=== PATIENT | female | born 1990 ===

== ENCOUNTER 2018-10-21 20:37 | Emergency (ER) | payer OTHER ==
[2018-10-21 21:03] VITALS: BP 102/70
--- NOTE | 2018-10-21 21:04 | UC ---
Knee Pain HPI - HPI Summary HPI Summary: 28 yo female presents with LEFT knee and LEFT wrist injury. She tells me that she was hiking earlier today and fell. She twisted her left knee and landed on her left wrist. She finished her hike. Upon getting home she iced the areas and pain and ROM improved, but she is flying back to [place] in a few days and is concerned about a fracture. She is right handed. Denies numbness or tingling. - History of Current Complaint Chief Complaint: UCLowerExtremity Stated Complaint: L KNEE INJURY Time Seen by Provider: 10/21/18 21:04 Hx Obtained From: Patient Hx Last Menstrual Period: today Onset/Duration: Sudden Onset Severity Initially: Moderate Severity Currently: Moderate Pain Intensity: 5 Pain Scale Used: 0-10 Numeric - Allergies/Home Medications Allergies/Adverse Reactions: Allergies Allergy/AdvReac Type Severity Reaction Status Date / Time No Known Allergies Allergy Verified 10/21/18 20:58 Home Medications: Home Medications Ibuprofen 400 mg PO Q8HR PRN 10/21/18 [History Confirmed 10/21/18] PMH/Surg Hx/FS Hx/Imm Hx - Additional Past Medical History Additional PMH: None - Surgical History Surgical History: Yes Surgery Procedure, Year, and Place: L ear surgery at 9 y/o and 11 y/o - Family History Known Family History: Positive: None - Social History Occupation: Employed Part-time Lives: With Family Alcohol Use: Rare Substance Use Type: None Smoking Status (MU): Never Smoked Tobacco Review of Systems All Other Systems Reviewed And Are Negative: Yes Constitutional: Positive: Negative Skin: Positive: Negative Respiratory: Positive: Negative Cardiovascular: Positive: Negative Neurovascular: Positive: Negative Musculoskeletal: Positive: Other: - Left knee and wrist pain Neurological: Positive: Negative Psychological: Positive: Negative Physical Exam - Summary Physical Exam Summary: GENERAL: NAD. WDWN. No pain distress. SKIN: No rashes, sores, lesions, or open wounds. CHEST: No accessory muscle use. Breathing comfortably and in no distress. CV: . Pulses intact popliteal, PT, and DP. Cap refill <2seconds MSK: LEFT KNEE: FROM. Strength 5/5. No edema or obvious bony deformities. No patella apprehension. Negative Shimon, A/P drawer, Parish, and varus/valgus stress. LEFT WRIST: Mild edema at thenar eminence. FROM without pain. Good chorus dancer strength and opposition. No snuffbox tenderness. NEURO: Alert. Sensations intact and symmetric B/L LEs PSYCH: Age appropriate behavior. Triage Information Reviewed: Yes Vital Signs: Initial Vital Signs Temp 99.0 F 10/21/18 20:59 Pulse 95 10/21/18 20:59 Resp 18 10/21/18 20:59 BP 102/70 10/21/18 20:59 Pulse Ox 100 10/21/18 20:59 Vital Signs Reviewed: Yes Knee Pain Course/Dx - Course Course Of Treatment: XR knee: No radiologist reading after 1800, therefore wet read by myself is negative for acute process. Suspect knee sprain and wrist sprain. Advised to RICE and take tylenol/ ibuprofen as directed for discomfort. F/u with Orthopedics back home in [place] if symptoms do not improve in 5-7 days. - Differential Dx/Diagnosis Provider Diagnosis: Knee sprain, Wrist sprain Discharge - Sign-Out/Discharge Documenting (check all that apply): Patient Departure All imaging exams completed and their final reports reviewed: No - Discharge Plan Condition: Stable Disposition: HOME Patient Education Materials: Knee Sprain (ED), Hand Sprain (ED) Referrals: No Primary Care Phys,NOPCP [Primary Care Provider] - Additional Instructions: If you develop a fever, shortness of breath, chest pain, new or worsening symptoms - please call your PCP or go to the ED immediately. 1) Rest, Ice, and elevate your hand and knee intermittently throughout the day to decrease pain and swelling 2) May take tylenol or ibuprofen as directed for discomfort 3) If your symptoms do not improve within 5-7 days, please see Orthopedics back home in [place] for a recheck - Billing Disposition and Condition Condition: STABLE Disposition: Home
--- NOTE | 2018-10-22 10:09 | UC ---
- Progress Note Progress Note: XR: IMPRESSION: NO EVIDENCE FOR FRACTURE. No change in plan of care Course/Dx - Diagnoses Provider Diagnoses: Knee sprain, Wrist sprain Discharge - Sign-Out/Discharge Documenting (check all that apply): Post-Discharge Follow Up All imaging exams completed and their final reports reviewed: Yes - Discharge Plan Condition: Stable Disposition: HOME Patient Education Materials: Knee Sprain (ED), Hand Sprain (ED) Referrals: No Primary Care Phys,NOPCP [Primary Care Provider] - Additional Instructions: If you develop a fever, shortness of breath, chest pain, new or worsening symptoms - please call your PCP or go to the ED immediately. 1) Rest, Ice, and elevate your hand and knee intermittently throughout the day to decrease pain and swelling 2) May take tylenol or ibuprofen as directed for discomfort 3) If your symptoms do not improve within 5-7 days, please see Orthopedics back home in [place] for a recheck - Billing Disposition and Condition Condition: STABLE Disposition: Home
== END 2018-10-21 21:28 | disposition home or self-care (01) ==
LOC: UCEAST 20:37
DX: S83.92XA Sprain of unspecified site of left knee, initial encounter (principal); S63.502A Unspecified sprain of left wrist, initial encounter; W19.XXXA Unspecified fall, initial encounter; Y93.01 Activity, walking, marching and hiking; Y92.9 Unspecified place or not applicable; Y99.8 Other external cause status
CPT/HCPCS: 99201; G0463